=== PATIENT | female | born 1985 | race Caucasian/White ===

== ENCOUNTER 2024-06-15 23:23 | Emergency (ER) | payer OTHER, SELFPAY ==
[2024-06-15 23:26] VITALS: BP 130/72; PULSE 81; TEMP 36.7; O2SAT 99; BMI 25.7
--- NOTE | 2024-06-15 23:38 | ED_ITS ---
HPI HPI - Back Pain/Injury General Chief Complaint: Back Pain/Injury Stated Complaint: back pain Time Seen by Provider: 06/15/24 23:32 Source: patient Mode of arrival: walk-in Limitations: no limitations History of Present Illness HPI Narrative: patient presents complaining of right sciatica pain for past 4 days. denies injury. states pain radiates into her right thigh. No lower ext. weakness or loss of control or bowel or bladder. States she has tried several treatments before coming in including vicodin, Neurontin and motrin. No fever or abdominal pain Related Data Home Medications ?Medication ?Instructions ?Recorded ?Confirmed buprenorphine 8 mg-naloxone 2 mg film 06/15/24 sublingual film gabapentin 300 mg capsule mg 06/15/24 omeprazole 20 mg capsule,delayed mg 06/15/24 release Allergies Allergy/AdvReac Type Severity Reaction Status Date / Time levofloxacin [From Levaquin] Allergy Anaphylaxis Verified 06/15/24 23:30 Penicillins Allergy Anaphylaxis Verified 06/15/24 23:30 Opioid HPI Opioid Management Most Recent Opioid Data: 2 Last Pain Scale 10 06/15/24 23:35 Last ED Pain Assessment 06/15/24 23:35 Review of Systems 2 ROS0 Status of ROS 10 or more systems reviewed and unremark able except as noted in history and below Exam Constitutional Vital Signs, click to edit/add: Last Vital Signs Temp 98.0 F 06/15/24 23:26 Pulse 81 06/15/24 23:26 Resp 18 06/15/24 23:26 BP 130/72 06/15/24 23:26 Pulse Ox 99 06/15/24 23:26 O2 Del Method Room Air 06/15/24 23:26 Common normals: no apparent distress, average body habitus, oriented x3, no limitations, healthy appearing, alert and well nourished [facility] Common normals: normocephalic and head/scalp atraumatic Eye Common normals: EOMs intact bilaterally and conjunctivae normal Respiratory Common normals: normal respiratory effort, no retractions, no use of accessory muscles and clear to auscultation bilaterally Cardio Common normals: regular rate, regular rhythm, S1 normal heart sound and S2 normal heart sound GI Common normals: Normal to inspection, nondistended, normoactive bowel sounds present, soft to palpation and non-tender Back & Pelvis Common normals: thoracic and lumbar spine normal to inspection and no thoracic nor lumbar tenderness Back image (female): 2 1. tender Extremity Common normals: normal to inspection and full ROM Neuro Common normals: oriented x3, CN's II-XII intact bilaterally, moves all extremities and no focal motor deficits Psych Appearance: grossly normal Course Vital Signs Vital signs: Vital Signs Temperature 98.0 F 06/15/24 23:26 Pulse Rate 81 06/15/24 23:26 Respiratory Rate 18 06/15/24 23:26 Blood Pressure 130/72 06/15/24 23:26 Pulse Oximetry 99 06/15/24 23:26 Oxygen Delivery Method Room Air 06/15/24 23:26 Temperature 98.0 F 06/15/24 23:26 Pulse Rate 81 06/15/24 23:26 Respiratory Rate 18 06/15/24 23:26 Blood Pressure 130/72 06/15/24 23:26 Pulse Oximetry 99 06/15/24 23:26 Oxygen Delivery Method Room Air 06/15/24 23:26 MDM - Back Pain/Injury MDM Narrative Medical decision making narrative: patient presents complaining of right sciatica pain for past 4 days interfering with sleep. Pain radiates from right buttocks to her thigh. no lower extremity weakness. exam unremarkable. IV meds ordered for her pain but she did not want them. Requested IM medication and then discharge. orders changed and discharge written Discharge Plan Discharge Stand Alone Forms: Portal Instructions Chief Complaint: Back Pain/Injury Clinical Impression: Sciatica Patient Disposition: Home, Self-Care Prescriptions / Home Meds: No Action gabapentin 300 mg capsule omeprazole 20 mg capsule,delayed release(DR/EC) buprenorphine-naloxone 8-2 mg film Print Language: [place] Instructions: Sciatica (ED) Referrals: [facility] [Primary Care Provider] - 1 week
[2024-06-16] MEDS: METHYLPREDNISOLONE SOD SUCC PF 125 MG/2 ML VIAL IM (00:33)
[2024-06-16] MEDS: ORPHENADRINE 60 MG/ 2 ML VIAL IM (00:34)
== END 2024-06-16 00:46 | disposition home or self-care (01) ==
PROVIDERS: Emergency Provider Internal Medicine
DX: M54.31 Sciatica, right side (principal)
CPT/HCPCS: 80048; 85652; 86140; 96372; 99284; J2360; J2919